=== PATIENT | female | born 1995 | race Caucasian/White ===

== ENCOUNTER 2016-06-13 19:06 | Emergency (ER) | payer OTHER ==
[2016-06-13 21:32] LABS: Hematocrit 43 % (35-47); Hemoglobin 14.3 g/dl (12.0-16.0); Mean Corpuscular HGB Conc 33 g/dl (31-36); Mean Corpuscular Hemoglobin 30 pg (27-31); Mean Corpuscular Volume 90 fL (80-97); Mean Platelet Volume 7 um3 (7.4-10.4); Red Blood Count 4.77 10^6/ul (4.0-5.4); Red Cell Distribution Width 13 % (10.5-15); White Blood Count 10.2 10^3/ul (3.5-10.8)
[2016-06-13 21:43] LABS: Urine Bacteria Absent (Absent); Urine Bilirubin Negative (Negative); Urine Glucose Negative (Negative); Urine Nitrite Negative (Negative)
[2016-06-13 21:44] LABS: Albumin 4.4 g/dL (3.2-5.2); BUN/Creatinine Ratio 18.3 (8-20); C Reactive Protein 2.27 mg/L (< 5.00); Calcium 10.1 mg/dL (8.6-10.3); EGFR African American 97.9 (>60); EGFR Non-African American 76.1 (>60); Globulin 3.4 g/dL (2-4); Magnesium 2.1 mg/dL (1.9-2.7); Potassium 4.5 mmol/L (3.5-5.0); Total Bilirubin 0.4 mg/dL (0.2-1.0); Total Protein 7.8 g/dL (6.4-8.9)
--- NOTE | 2016-06-13 22:36 | RAD ---
Indication: Left lower quadrant pain. Real-time sonography of the pelvis was performed. The uterus measures 6.9 x 3.5 x 4.9 cm. Endometrial echo measures 5.4 mm. The right ovary is enlarged measuring 12.2 x 7.4 x 10.0 cm. Large complex right ovarian cyst is noted measuring 12.2 x 7.4 x 10.0 cm with thick septations. The left ovary measures 5.1 x 3.2 x 5.6 cm. A mixed solid and cystic lesion is noted measuring 5.6 x 3.2. Cystic component measures 5.1 x 4.2 x 2.6 cm. There may be a solid component measuring 2.5 x 3.1 x 2.8 cm. Follow-up exam of this lesion is suggested. Doppler interrogation demonstrates flow in both ovaries. IMPRESSION: The right ovary demonstrates a cystic lesion in the right ovary measuring 12.2 x 7.4 x 10.0 cm. Mixed solid and cystic lesion in the left ovary measuring 5.1 x 4.2 x 2.6 cm.
[2016-06-13] MEDS ORDERED: HYDROcodone/ACETAMIN 5-325 MG* 1 TAB PO ONE (23:30)
--- NOTE | 2016-06-14 00:35 | ED ---
Abdominal Pain/Female - HPI Summary HPI Summary: Patient presents to ED with CC of LLQ abdominal pain which is intermittent, lasting several minutes to an hour at a time and has been present for 2 weeks. She denies associated nausea, vomiting, diarrhea or constipation. She takes sertraline daily and has depression and anxiety, but denies any other health problems. She has a positive family history of colitis, but has never had any abdominal issues personally. She denies fever, chills, sweats. Denies vaginal discharge, bleeding or UTI symptoms. She denies flank pain and has never been diagnosed with kidney stones, infections or UTI. She notes to 1X intercourse in the last month and states no chance of . She is on OCP's and has never missed a dose. She has tried to take tums thinking it may be gastritis. - History of Current Complaint Chief Complaint: EDAbdPain Stated Complaint: ABD PAIN Time Seen by Provider: 06/13/16 20:41 Hx Obtained From: Patient ?: No Onset/Duration: Sudden Onset Timing: Hours Severity Initially: Moderate Severity Currently: Moderate Pain Intensity: 4 Pain Scale Used: 0-10 Numeric Location: Discrete At: LLQ Radiates: No Character: Sharp Aggravating Factor(s): Nothing Alleviating Factor(s): Nothing Associated Signs and Symptoms: Positive: Negative - Risk Factors Ectopic Risk Factor: Negative Ovarian Torsion Risk Factor: Reproductive Age Allergies/Adverse Reactions: Allergies Allergy/AdvReac Type Severity Reaction Status Date / Time Penicillins [PCN] Allergy Eyes Verified 06/13/16 20:44 Itchy/Swollen/Red/Watery PMH/Surg Hx/FS Hx/Imm Hx Previously Healthy: Yes Infectious Disease History: No Infectious Disease History: Denies: Traveled Outside the [place] in Last 30 Days - Social History Occupation: Unemployed Lives: With Family Alcohol Use: None Hx Substance Use: No Substance Use Type: Reports: None Hx Tobacco Use: No Smoking Status (MU): Never Smoked Tobacco Do You Chew or Dip Tobacco: No Review of Systems Constitutional: Negative Eyes: Negative Cardiovascular: Negative Respiratory: Negative Positive: Abdominal Pain Positive: no symptoms reported, see HPI Musculoskeletal: Negative Neurological: Negative Psychological: Normal All Other Systems Reviewed And Are Negative: Yes Physical Exam Triage Information Reviewed: Yes Vital Signs On Initial Exam: Initial Vitals Temp Pulse Resp BP Pulse Ox 97.4 F 68 18 122/56 99 06/13/16 19:08 06/13/16 19:08 06/13/16 19:08 06/13/16 19:08 06/13/16 19:08 Vital Signs Reviewed: Yes Appearance: Positive: Well-Appearing, No Pain Distress, Well-Nourished Skin: Positive: Warm, Skin Color Reflects Adequate Perfusion Head/Face: Positive: Normal Head/Face Inspection Eyes: Positive: EOMI, MIGNON, Conjunctiva Clear Neck: Positive: Supple, No Lymphadenopathy Respiratory/Lung Sounds: Positive: Clear to Auscultation, Breath Sounds Present Cardiovascular: Positive: Normal, RRR, Pulses are Symmetrical in both Upper and Lower Extremities Abdomen Description: Positive: Nontender, Soft, Other: - nontender on palpation in all 4 quadrants, no epigastric or suprapubic pain. Ruffin and rovsing negative. Musculoskeletal: Positive: Strength/ROM Intact Neurological: Positive: Sensory/Motor Intact, Alert, Oriented to Person Place, Time, Speech Normal Psychiatric: Positive: Normal AVPU Assessment: Alert - Ragini Coma Scale Best Eye Response: 4 - Spontaneous Best Motor Response: 6 - Obeys Commands Best Verbal Response: 5 - Oriented Coma Scale Total: 15 Diagnostics - Vital Signs Vital Signs Temp Pulse Resp BP Pulse Ox 06/13/16 23:46 98.2 F 81 16 122/68 06/13/16 20:44 97.4 F 68 18 122/56 99 06/13/16 19:08 97.4 F 68 18 122/56 99 - Laboratory Lab Results: Lab Results 06/13/16 06/13/16 06/13/16 Range/Units 20:15 20:15 20:15 WBC 10.2 (3.5-10.8) 10^3/ul RBC 4.77 (4.0-5.4) 10^6/ul Hgb 14.3 (12.0-16.0) g/dl Hct 43 (35-47) % MCV 90 (80-97) fL MCH 30 (27-31) pg MCHC 33 (31-36) g/dl RDW 13 (10.5-15) % Plt Count 353 (150-450) 10^3/ul MPV 7 L (7.4-10.4) um3 Neut % (Auto) 57.4 (38-83) % Lymph % (Auto) 29.5 (25-47) % [place] % (Auto) 10.1 H (1-9) % Eos % (Auto) 2.5 (0-6) % Baso % (Auto) 0.5 (0-2) % Absolute Neuts (auto) 5.8 (1.5-7.7) 10^3/ul Absolute Lymphs (auto) 3.0 (1.0-4.8) 10^3/ul Absolute Monos (auto) 1.0 H (0-0.8) 10^3/ul Absolute Eos (auto) 0.3 (0-0.6) 10^3/ul Absolute Basos (auto) 0.1 (0-0.2) 10^3/ul Absolute Nucleated RBC 0 10^3/ul Nucleated RBC % 0 Sodium 135 (133-145) mmol/L Potassium 4.5 (3.5-5.0) mmol/L Chloride 98 L (101-111) mmol/L Carbon Dioxide 33 H (22-32) mmol/L Anion Gap 4 (2-11) mmol/L BUN 17 (6-24) mg/dL Creatinine 0.93 (0.51-0.95) mg/dL Est GFR ( Amer) 97.9 (>60) Est GFR (Non-Af Amer) 76.1 (>60) BUN/Creatinine Ratio 18.3 (8-20) Glucose 85 (70-100) mg/dL Calcium 10.1 (8.6-10.3) mg/dL Magnesium 2.1 (1.9-2.7) mg/dL Total Bilirubin 0.40 (0.2-1.0) mg/dL AST 22 (13-39) U/L ALT 14 (7-52) U/L Alkaline Phosphatase 61 (34-104) U/L C-Reactive Protein 2.27 (< 5.00) mg/L Total Protein 7.8 (6.4-8.9) g/dL Albumin 4.4 (3.2-5.2) g/dL Globulin 3.4 (2-4) g/dL Albumin/Globulin Ratio 1.3 (1-3) Lipase 23 (11.0-82.0) U/L Beta HCG, Quant 0.63 mIU/mL Urine Color Yellow Urine Appearance Cloudy Urine pH 7.0 (5-9) Ur Specific Scott 1.019 (1.010-1.030) Urine Protein Negative (Negative) Urine Ketones Negative (Negative) Urine Blood 3+ H (Negative) Urine Nitrate Negative (Negative) Urine Bilirubin Negative (Negative) Urine Urobilinogen Negative (Negative) Ur Leukocyte Esterase Negative (Negative) Urine WBC (Auto) Absent (Absent) Urine RBC (Auto) Trace(0-2/hpf) (Absent) Ur Squamous Epith Cells Present H (Absent) Amorphous Crystals Present H (Absent) Urine Bacteria Absent (Absent) Urine Glucose Negative (Negative) Result Diagrams: 06/13/16 20:15 06/13/16 20:15 Lab Statement: Any lab studies that have been ordered have been reviewed, and results considered in the medical decision making process. Abdominal Pain Fem Course/Dx - Course Course Of Treatment: Provider explained the risks and benefits of CT scan. Patient agrees and is OK with US first. She understands this image is limited and that we may need to do a CT scan if pain continues and US is normal. She denies wanting pain medicines at this time. Labs OK. US shows: IMPRESSION: The right ovary demonstrates a cystic lesion in the right ovary measuring 12.2. x 7.4 x 10.0 cm. Mixed solid and cystic lesion in the left ovary measuring 5.1 x 4.2 x 2.6 cm. Patient OK to be discharged with follow up with OBGYN. Explained to patient this is likely the cause of her pain, but cannot be 100%. Patient understands and is OK to leave with follow up. She is give information for Dr. Peoples. She requests pain medications upon discharge. 2 norco given to go and prescription for [place] sent to her pharmacy. Patient stable and afebrile on discharge. - Diagnoses Differential Diagnosis: Positive: Appendicitis, Constipation, Diverticulitis, Ovarian Cyst Provider Diagnoses: Ovarian cyst Discharge - Discharge Plan Condition: Stable Disposition: HOME Prescriptions: HYDROcodone/ACETAMIN 5-325 MG* [[place] 5-325 TAB*] 1 tab PO Q4H PRN #12 tab MDD 6 PRN Reason: Pain Patient Education Materials: Ovarian Cyst (ED) Referrals: [facility] [Primary Care Provider] - Leon Peoples MD [Medical Doctor] - Additional Instructions: Follow up with OBGYN Ibuprofen 600mg three times daily as needed for pain
[2016-06-14 06:14] VITALS: BP 122/68
== END 2016-06-13 23:46 | disposition home or self-care (01) ==
LOC: ED 19:06
DX: N83.209 Unspecified ovarian cyst, unspecified side (principal); R10.32 Left lower quadrant pain
CPT/HCPCS: 36415; 76856; 80053; 81003; 81015; 83690; 83735; 84702; 85025; 86140; 99282

== ENCOUNTER 2016-11-08 18:09 | Emergency (ER) | payer OTHER ==
[2016-11-08 18:24] VITALS: BP 124/74
== END 2016-11-08 19:09 | disposition left against medical advice (07) ==
LOC: ED 18:09
DX: M79.645 Pain in left finger(s) (principal); Z53.21 Procedure and treatment not carried out due to patient leaving prior to being seen by health care provider

== ENCOUNTER 2017-08-07 18:07 | Emergency (ER) | payer SELFPAY ==
[2017-08-07] MEDS ORDERED: Dexamethasone TAB* 4 MG PO ONE (18:43)
[2017-08-07] MEDS ORDERED: Clindamycin CAP* 150 MG PO ONE (18:43)
--- NOTE | 2017-08-07 18:43 | ED ---
Throat Pain/Nasal Congestion - HPI Summary HPI Summary: 22 female presents with sore throat for the past couple days. She states that a week ago she was diagnosed with strep and placed on azithromycin. She seemed to get better but for the past 2 days she got worse. She has not been on antibiotics for the past 2 days. She states that when it swallows neck feels swollen. She admits to neck stiffness. She denies any headache. She denies any photophobia. No fevers. She admits to cough. No change in her normal belly pain. States she had a mono test done recently which was negative. No fatigue. Is able to swallow. Able to eat normally. Took some ibuprofen so swelling is down. No medical conditions. Has full range of motion of neck. - History of Current Complaint Chief Complaint: EDThroatPain Time Seen by Provider: 08/07/17 18:14 - Allergies/Home Medications Allergies/Adverse Reactions: Allergies Allergy/AdvReac Type Severity Reaction Status Date / Time MS Penicillins [PCN] Allergy Eyes Verified 08/07/17 18:13 Itchy/Swollen/Red/Watery PMH/Surg Hx/FS Hx/Imm Hx Endocrine/Hematology History: Denies: Hx Anticoagulant Therapy Cardiovascular History: Denies: Hx Myocardial Infarction - Immunization History Date of Tetanus Vaccine: up to date Immunizations Up to Date: Yes Infectious Disease History: No Infectious Disease History: Denies: Traveled Outside the [place] in Last 30 Days - Family History Known Family History: Negative: Respiratory Disease - Social History Alcohol Use: Occasionally Hx Substance Use: No Substance Use Type: Reports: Marijuana Hx Tobacco Use: No Smoking Status (MU): Never Smoked Tobacco Review of Systems Negative: Fever Negative: Photophobia Positive: Sore Throat. Negative: Nasal Discharge Negative: Chest Pain Positive: Cough. Negative: Shortness Of Breath Positive: Nausea All Other Systems Reviewed And Are Negative: Yes Physical Exam Triage Information Reviewed: Yes Vital Signs On Initial Exam: Initial Vitals Temp Pulse Resp BP Pulse Ox 97.4 F 60 20 117/78 100 08/07/17 18:09 08/07/17 18:09 08/07/17 18:09 08/07/17 18:09 08/07/17 18:09 Vital Signs Reviewed: Yes Appearance: Positive: Well-Appearing Skin: Positive: Warm, Dry Head/Face: Positive: Normal Head/Face Inspection Eyes: Positive: Normal, EOMI, MIGNON, Conjunctiva Clear ENT: Positive: Pharyngeal erythema, TMs normal, Tonsillar swelling, Uvula midline, Other - soft palate symmetric. Negative: Tonsillar exudate, Trismus, Muffled voice Neck: Positive: Enlarged Nodes @ - cervical, Other: - full ROM neck. Negative: Nuchal Rigidity Respiratory/Lung Sounds: Positive: Clear to Auscultation, Breath Sounds Present Cardiovascular: Positive: Normal, RRR Abdomen Description: Positive: Nontender, Soft Bowel Sounds: Positive: Present Musculoskeletal: Positive: Normal Neurological: Positive: Normal Psychiatric: Positive: Normal Diagnostics - Vital Signs Vital Signs Temp Pulse Resp BP Pulse Ox 08/07/17 18:09 97.4 F 60 20 117/78 100 - Laboratory Lab Statement: Any lab studies that have been ordered have been reviewed, and results considered in the medical decision making process. EENT Course/Dx - Course Course Of Treatment: 22 female presents with sore throat for the past couple days. She states that a week ago she was diagnosed with strep and placed on azithromycin. She seemed to get better but for the past 2 days she got worse. She has not been on antibiotics for the past 2 days. She states that when it swallows neck feels swollen. She admits to neck stiffness. She denies any headache. She denies any photophobia. No fevers. She admits to cough. No change in her normal belly pain. States she had a mono test done recently which was negative. No fatigue. Is able to swallow. Able to eat normally. Took some ibuprofen so swelling is down. No medical conditions. Has full range of motion of neck. On exam tonsils +2. Uvula midline. Soft palate symmetric. Lungs clear to auscultation. No nuchal rigidity. Has full range of motion of neck. Tenderness to anterior cervical lymph nodes. Discuss may need a different antibiotics will place on [place]. illness though is likely viral. will give steriod too. Patient understands agrees plan. - Differential Diagnoses Differential Diagnoses: Pharyngitis, Tonsilitis - Diagnoses Provider Diagnoses: Upper respiratory infection Discharge - Sign-Out/Discharge Documenting (check all that apply): Discharge/Admit/Transfer - Discharge Plan Condition: Good Disposition: HOME Prescriptions: Clindamycin Cap(NF) [Clindamycin Cap 300 mg Cap(NF)] 300 mg PO TID #20 cap Dexamethasone TAB* [Decadron TAB*] 4 mg PO DAILY #4 tab Patient Education Materials: Pharyngitis (ED) [facility] [, AP[facility], OTHER] - Additional Instructions: Take antibiotic three times a day for 7 days Take steroid once a day for 4 days Take Tylenol or ibuprofen for pain/fever every 6 hours Can gargle salt water, use cough drops or products such as cloraseptic spray for pain Return to ED if develop difficulty breathing or unable to manage secretions, any new or worsening symptoms - Billing Disposition and Condition Condition: GOOD Disposition: Home
[2017-08-07 19:22] VITALS: BP 117/74
== END 2017-08-07 19:22 | disposition home or self-care (01) ==
LOC: ED 18:07
DX: J06.9 Acute upper respiratory infection, unspecified (principal); Z88.0 Allergy status to penicillin
CPT/HCPCS: 99282; A9270-GY; J8540